=== PATIENT | female | born 1960 | race Caucasian/White ===

== ENCOUNTER 2018-11-19 16:41 | Emergency (ER) | payer OTHER ==
[~2018-11-19] VITALS: Ht 167.6 cm; Wt 74.8 kg
== END 2018-11-19 20:09 | disposition left against medical advice (07) ==
LOC: ER 16:41
DX: Z53.21 Procedure and treatment not carried out due to patient leaving prior to being seen by health care provider (principal)
CPT/HCPCS: 74176; 99284-25

== ENCOUNTER → 2018-11-19 | Outpatient (CLI) | payer OTHER ==
[~2018-11-19] MED LIST: ALBU90OI6 INH; AMIT75 PO; ATEN50 PO; ATOR10; AZIT250 PO; BENZ100A PO; CYCL10 PO; DIVA250EC; HYDACE5 PO; IBUP600 PO; IBUP800 PO; LISI5 PO; METCAR500 PO; NAPR500 PO; NAPR500EC PO; OXYACE5T PO; PENVK500 PO; PREG200; PREG200 PO; PREG25 PO; PREMARIN; RXCYCL10 PO; RXHYDACE PO; SERT100 PO; TRAM50 PO; VARE1 PO; VENL25 PO; VENL75; VENL75 PO
[2018-11-19 16:48] LABS: BASOPHILS ABSOLUTE AUTO 0.05 K/mm3 (0.00-0.23); BASOPHILS PERCENT AUTO 1 % (0-2); EOSINOPHILS PERCENT AUTO 2 % (0-6); Hematocrit 42.5 % (33.0-51.0); Hemoglobin 14.3 g/dL (11.5-16.0); IMMATURE GRAN ABSOLUTE AUTO 0.01 K/mm3 (0.00-0.10); IMMATURE GRAN PERCENT AUTO 0 % (0-1); LYMPHOCYTES ABSOLUTE AUTO 2.35 K/mm3 (0.84-5.20); LYMPHOCYTES PERCENT AUTO 37 % (21-46); MONOCYTES ABSOLUTE AUTO 0.28 K/mm3 (0.16-1.47); MONOCYTES PERCENT AUTO 4 % (4-13); Mean Corpuscular HGB 31.5 pg (26.0-34.0); Mean Corpuscular HGB Conc 33.6 g/dL (31.5-36.5); Mean Corpuscular Volume 94 fL (80-100); Mean Platelet Volume 10.5 fL (9.1-12.4); NEUTROPHILS ABSOLUTE AUTO 3.56 K/mm3 (1.96-9.15); NEUTROPHILS PERCENT AUTO 56 % (41-73); Platelet Count 248 K/mm3 (150-400); RDW Coefficient Variation 12.2 % (11.7-14.2); RDW Standard Deviation 42.1 fL (35.1-46.3); Red Blood Cell Count 4.54 M/mm3 (3.80-5.20); White Blood Cell Count 6.35 K/mm3 (4.00-11.30)
[2018-11-19 17:17] LABS: Alanine Aminotransfer (ALT/SGP 29 U/L (12-78); Albumin/Globulin Ratio 1.2 (0.8-1.8); Alk Phos 91 U/L (50-136); Amylase, Blood 98 U/L (25-115); Anion Gap 5 mmol/L (6-16); Aspartate Aminotrans (AST/SGOT 22 U/L (12-37); Bilirubin, Total 0.4 mg/dL (0.1-1.0); Blood Urea Nitrogen 14 mg/dL (8-24); Bun/Creatinine Ratio 14.1 (12.0-20.0); CO2, Blood 24 mmol/L (21-32); Calcium, Blood 9.4 mg/dL (8.5-10.1); Chloride, Blood 108 mmol/L (98-108); Creatinine, Blood 0.99 mg/dL (0.40-1.00); Globulin, Blood 3.4 g/dL (2.2-4.0); Glomerular Filtration Rate >60 (60-); Glucose, Blood 88 mg/dL (70-99); Potassium, Blood 3.8 mmol/L (3.5-5.5); Sodium, Blood 137 mmol/L (136-145); Total Protein, Blood 7.4 g/dL (6.4-8.2)
== END ==
LOC: LAB 16:32 → LAB SHORT 16:32
PROVIDERS: Family Medicine
DX: R10.9 Unspecified abdominal pain (principal); R11.0 Nausea
CPT/HCPCS: 80053; 82150; 83690; 85025

== ENCOUNTER 2022-09-25 10:05 | Emergency (ER) | payer OTHER ==
[~2022-09-25] VITALS: Ht 167.6 cm; Wt 72.6 kg
[2022-09-25 11:08] LABS: BASOPHILS ABSOLUTE AUTO 0.05 K/mm3 (0.00-0.23); BASOPHILS PERCENT AUTO 1 % (0-2); EOSINOPHILS ABSOLUTE AUTO 0.19 K/mm3 (0.00-0.68); EOSINOPHILS PERCENT AUTO 3 % (0-6); Hematocrit 45.8 % (33.0-51.0); Hemoglobin 15.7 g/dL (11.5-16.0); IMMATURE GRAN ABSOLUTE AUTO 0.02 K/mm3 (0.00-0.10); IMMATURE GRAN PERCENT AUTO 0 % (0-1); LYMPHOCYTES ABSOLUTE AUTO 2.59 K/mm3 (0.84-5.20); LYMPHOCYTES PERCENT AUTO 38 % (21-46); MONOCYTES ABSOLUTE AUTO 0.34 K/mm3 (0.16-1.47); MONOCYTES PERCENT AUTO 5 % (4-13); Mean Corpuscular HGB 32.2 pg (26.0-34.0); Mean Corpuscular HGB Conc 34.3 g/dL (31.5-36.5); Mean Corpuscular Volume 94 fL (80-100); Mean Platelet Volume 9.8 fL (9.1-12.4); NEUTROPHILS ABSOLUTE AUTO 3.56 K/mm3 (1.96-9.15); NEUTROPHILS PERCENT AUTO 53 % (41-73); Platelet Count 250 K/mm3 (150-400); RDW Coefficient Variation 11.9 % (11.7-14.2); RDW Standard Deviation 41.1 fL (35.1-46.3); Red Blood Cell Count 4.88 M/mm3 (3.80-5.20); White Blood Cell Count 6.75 K/mm3 (4.00-11.30)
[2022-09-25 11:52] LABS: Albumin/Globulin Ratio 1.1 (0.8-1.8); Bilirubin, Total 0.5 mg/dL (0.1-1.0); Bun/Creatinine Ratio 16.2 (12.0-20.0); Calcium, Blood 9.5 mg/dL (8.5-10.1); Creatinine, Blood 1.05 mg/dL (0.40-1.00); Globulin, Blood 3.8 g/dL (2.2-4.0); Magnesium, Blood 2.3 mg/dL (1.6-2.4); Potassium, Blood 4.1 mmol/L (3.5-5.5); Total Protein, Blood 7.8 g/dL (6.4-8.2)
[2022-09-25] MEDS ORDERED: TOPI50 (14:54)
[2022-09-25] MEDS ORDERED: PROP10 PO (14:55)
[2022-09-25] MEDS ORDERED: NURTEC ODT75 MG PO (14:56)
== END 2022-09-25 15:28 | disposition home or self-care (01) ==
LOC: ER 10:05
PROVIDERS: Physician Assistant
DX: R51.9 Headache, unspecified (principal); I10 Essential (primary) hypertension; Z87.891 Personal history of nicotine dependence; Z79.899 Other long term (current) drug therapy
CPT/HCPCS: 36415; 70450; 80053; 83735; 85025; 93005; 93010; A9270; J1200; J1885; J2765

== ENCOUNTER 2023-04-25 14:08 | Inpatient (IN) | payer OTHER ==
[~2023-04-25] VITALS: Ht 167.6 cm; Wt 82.3 kg
[~2023-04-25 14:08] MED LIST changes: -ALBU90OI INH; -ARNUITY ELLIPT50 MCG IH; -ASPI81CH PO; -BRILINTA90 M1 PO; -CLON.5 PO; -INDOMETHACIN PO; -Inderal40 MG PO; -LISI20 PO; -Lipitor80 MG PO; -MECL25 PO; -NITR.4SL SL; -OMEP20ER PO; -PROM25 PO; -SUMA25 PO; -TOPI25 PO
[2023-04-25] MEDS ORDERED: CLON.5 PO ×2 (15:47)
[2023-04-25] MEDS ORDERED: ASPI81CH PO ×2 (15:47)
[2023-04-25] MEDS ORDERED: ALBU90OI INH ×2 (15:47)
[2023-04-25] MEDS ORDERED: ARNUITY ELLIPT50 MCG IH (15:48)
[2023-04-25] MEDS ORDERED: LISI20 PO ×2 (15:48)
[2023-04-25] MEDS ORDERED: INDOMETHACIN PO (15:48)
[2023-04-25] MEDS ORDERED: NURTEC ODT75 MG PO ×2 (15:49)
[2023-04-25] MEDS ORDERED: MECL25 PO (15:49)
[2023-04-25] MEDS ORDERED: OMEP20ER PO ×2 (15:49)
[2023-04-25] MEDS ORDERED: SUMA25 PO ×2 (15:50)
[2023-04-25] MEDS ORDERED: Inderal40 MG PO ×2 (15:50)
[2023-04-25] MEDS ORDERED: PROM25 PO ×3 (15:50)
[2023-04-25] MEDS ORDERED: TOPI25 PO ×2 (15:51)
[2023-04-25 16:20] LABS: CHOL/HDL RATIO 2.5; Cholesterol 266 mg/dL (50-200); HDL Cholesterol 108 mg/dL (>39); LDL/HDL RATIO 1.2; Low Density Lipoprotein Chol 132 mg/dL (0-110); Triglycerides 128 mg/dL (30-160); Very Low Density Lipoprot Chol 25 mg/dL (6-32)
[2023-04-25 17:00] VITALS: BP 161/92
[2023-04-25 17:34] VITALS: BP 156/97
[2023-04-25 17:40] LABS: Anti-Xa UFH, PHA Monitoring <0.10 IU/mL; International Normalized Ratio 0.97; Prothrombin Time Results 10.2 Sec (9.7-11.5)
--- NOTE | 2023-04-25 18:11 | NUR ---
ADMIT TO U 05 AT 1701 PATIENT ABLE TO STAND AND TRANSFER TO BED. ALERT AND ORIENTED X4. DENIES NUMBNESS/TINGLING. COMPLAINS OF 4/10 CHEST PRESSURE. DENIES RADIATING PAIN. STATES SHE FEELS A "AIR BUBBLE TRAPPED". DENIES SHARP SHOOTING PAIN. STATES SHE HAS BEEN HAVING THIS PAIN INTERMIT FOR THE LAST 4 DAYS WITH INCREASING PAIN EACH EPISODE. PATIENT STATES EPISODES HAPPEN AT RANDOM TIMES SUCH DRIVING AND IN THE MIDDLE OF THE NIGHT WAKING HER. DR. MEJIA TO BEDSIDE FOR CARDIOLOGY CONSULT. PLAN FOR ECHO IN AM. PATIENT REMAINS NPO. HEPARIN GTT INFUSING PER EMAR. BP ELEVATED, PRN HYDRALAZINE GIVEN PER EMAR. ON ROOM AIR SATING ABOVE 95%. PATIENT STATES SOB COMES AND GOES WITH INTERMIT CHEST PAIN. EVEN AND UNLABORED BREATHS. DENIES ABDOMINAL PAIN/NAUSEA. VOIDING WNL. LAST BM THIS AM. CALL LIGHT IN REACH. MED REC COMPLETED. PATIENT EDUCATED ON HEPARIN GTT AND FALL RISK/SAFETY.
[2023-04-25 19:00] VITALS: BP 168/144
[2023-04-25 19:55] VITALS: BP 191/84
[2023-04-25 20:00] VITALS: BP 173/107
[2023-04-25 21:00] VITALS: BP 148/79
[2023-04-25 21:25] LABS: U Amphetamine Screen Not Detected; U Barbituate Screen Not Detected; U Benzodiazapine Screen Not Detected; U Buprenorphine Screen Not Detected; U Cannabinoids Screen DETECTED; U Cocaine Screen Not Detected; U Methadone Screen Not Detected; U Methamphetamine Screen Not Detected; U Opiates Screen Not Detected; U Oxycodone Screen Not Detected; U Phencyclidine Screen Not Detected; U Propoxyphene Screen Not Detected
[2023-04-26] VITALS (16 sets, daily range): BP systolic 99–142; BP diastolic 62–95
--- NOTE | 2023-04-26 04:56 | NUR ---
SHIFT SUMMARY PATIENT IS ALERT AND ORIENTED X4. 02 SATS >93% ON RA, DENIES SOB. HR SB-SR 56-60s. BP STABLE THROUGH THE NIGHT. DENIES CP/PRESSURE THIS SHIFT. HEPARIN DRIP REMAINS INFUSING. MEDICATED FOR ANXIETY BEFORE BED, PATIENT SLEPT MOST THE NIGHT. UP TO TOILET SBA. FAMILY AT BEDSIDE. CALL LIGHT IN REACH.
[2023-04-26 05:30] LABS: BASOPHILS ABSOLUTE AUTO 0.04 K/mm3 (0.00-0.23); BASOPHILS PERCENT AUTO 1 % (0-2); EOSINOPHILS ABSOLUTE AUTO 0.22 K/mm3 (0.00-0.68); EOSINOPHILS PERCENT AUTO 4 % (0-6); Hematocrit 41.4 % (33.0-51.0); Hemoglobin 14.2 g/dL (11.5-16.0); IMMATURE GRAN ABSOLUTE AUTO 0.01 K/mm3 (0.00-0.10); IMMATURE GRAN PERCENT AUTO 0 % (0-1); LYMPHOCYTES ABSOLUTE AUTO 2.46 K/mm3 (0.84-5.20); LYMPHOCYTES PERCENT AUTO 47 % (21-46); MONOCYTES ABSOLUTE AUTO 0.28 K/mm3 (0.16-1.47); MONOCYTES PERCENT AUTO 5 % (4-13); Mean Corpuscular HGB 30.9 pg (26.0-34.0); Mean Corpuscular HGB Conc 34.3 g/dL (31.5-36.5); Mean Corpuscular Volume 90 fL (80-100); Mean Platelet Volume 10.5 fL (9.1-12.4); NEUTROPHILS ABSOLUTE AUTO 2.28 K/mm3 (1.96-9.15); NEUTROPHILS PERCENT AUTO 43 % (41-73); Platelet Count 203 K/mm3 (150-400); RDW Coefficient Variation 12.3 % (11.7-14.2); RDW Standard Deviation 41.1 fL (35.1-46.3); Red Blood Cell Count 4.59 M/mm3 (3.80-5.20); White Blood Cell Count 5.29 K/mm3 (4.00-11.30)
[2023-04-26 05:52] LABS: Albumin, Blood 3.4 g/dL (3.4-5.0); Albumin/Globulin Ratio 1.1 (0.8-1.8); Bilirubin, Total 0.5 mg/dL (0.1-1.0); Bun/Creatinine Ratio 17.1 (12.0-20.0); Calcium, Blood 9.2 mg/dL (8.5-10.1); Creatinine, Blood 0.88 mg/dL (0.40-1.00); Potassium, Blood 3.3 mmol/L (3.5-5.5); Total Protein, Blood 6.4 g/dL (6.4-8.2)
--- NOTE | 2023-04-26 18:08 | NUR ---
SHIFT SUMMARY: TELEMETRY CHANGES NOTED OVERNIGHT, PT IS ASYMPTOMATIC THIS AM. INVERTED T WAVES AND PROLONGED QT NOTED, EKG DONE THIS AM. DR MEJIA TO BEDSIDE THIS AM, DISCUSSED ANGIOGRAM WITH PT. PT IS VERY ANXIOUS ABOUT PROCEDURE, BUT AGREES. PT TO HARDWARE ENGINEERING MANAGER AND RETURNED TO ROOM [id number]. TR BAND TO R RADIAL SITE, RECOVERED WNL, NO COMPLICATIONS NOTED. PT REPORTS HEADACHE AND ACHING IN HER CHEST, DR MEJIA AT BEDSIDE THIS AFTERNOON TO EVALUATE, NEW ORDERS RECEIVED. SEE DOCUMENTED VS, BLOOD PRESSURES HAVE IMPROVED. PT EDUCATED ON RADIAL SITE PRECAUTIONS AND VERBALIZES UNDERSTANDING. PT IS ABLE TO USE CALL LIGHT FOR NEEDS. WILL CONTINUE TO MONITOR AND GIVE REPORT TO NOC SHIFT RN.
[2023-04-27] VITALS: BP 110/69
[2023-04-27 05:02] VITALS: BP 118/85
[2023-04-27 05:07] LABS: Albumin, Blood 3.1 g/dL (3.4-5.0); Albumin/Globulin Ratio 1.1 (0.8-1.8); Bilirubin, Total 0.3 mg/dL (0.1-1.0); Bun/Creatinine Ratio 21.7 (12.0-20.0); Calcium, Blood 8.8 mg/dL (8.5-10.1); Creatinine, Blood 0.97 mg/dL (0.40-1.00); Globulin, Blood 2.9 g/dL (2.2-4.0)
--- NOTE | 2023-04-27 06:07 | NUR ---
SHIFT SUMMARY ASSUMED CARE OF PT AT 1900. PT IS A/OX4. HEART SOUNDS REGULAR. PT WAS INDER WHEN SLEEPING. LUNG SOUNDS CLEAR. R RADIAL SITE HAS SOME BRUISING AND PT STAES IS SORE. PT C/O DULL CP, BUT STATED IT WAS BETTER THIS AM. PT SLEPT T/O THE NOC. PT DAUGHTER IN ROOM WITH PT.
[2023-04-27 08:40] VITALS: BP 138/97
[2023-04-27] MEDS ORDERED: Lipitor80 MG PO ×2 (12:26)
[2023-04-27] MEDS ORDERED: NITR.4SL SL ×2 (12:26)
[2023-04-27] MEDS ORDERED: BRILINTA90 M1 PO ×2 (12:27)
--- NOTE | 2023-04-27 12:44 | NUR ---
ASSUMED CARE OF PT AT 0700 THIS AM. PT W NO COMPLAINTS. SEE DOCUMENTED VS AND ASSESSMENT. PT DISCHARGED HOME WITH ALL BELONGINGS AT 1240. RXs SENT TO [facility] PER PT REQUEST. ALL DISCHARGE TEACHING REVIEWED, INCLUDING FOLLOW UP APPOINTMENTS, MEDICATION LIST, NEW MEDICATIONS AND R RADIAL SITE CARE. PT AND DTR AT BEDSIDE VERBALIZED UNDERSTANDING AND HAVE NO QUESTIONS OR CONCERNS AT THIS TIME. NO FURTHER DISCHARGE NEEDS IDENTIFIED.
== END 2023-04-27 12:46 | disposition home or self-care (01) | DRG 247 ==
LOC: ER 14:08 → PCU 16:07
PROVIDERS: Family Medicine; Internal Medicine Cardiovascular Disease; ADMIT Internal Medicine
PROC: 027034Z Dilation of Coronary Artery, One Artery with Drug-eluting Intraluminal Device, Percutaneous Approach (ICD-10-PCS; principal; 2023-04-26)
PROC: 4A023N7 Measurement of Cardiac Sampling and Pressure, Left Heart, Percutaneous Approach (ICD-10-PCS; 2023-04-26)
PROC: B2111ZZ Fluoroscopy of Multiple Coronary Arteries using Low Osmolar Contrast (ICD-10-PCS; 2023-04-26)
PROC: B241ZZZ Ultrasonography of Multiple Coronary Arteries (ICD-10-PCS; 2023-04-26)
DX: I21.4 Non-ST elevation (NSTEMI) myocardial infarction (principal); E87.1 Hypo-osmolality and hyponatremia; I16.1 Hypertensive emergency; F41.9 Anxiety disorder, unspecified; G43.909 Migraine, unspecified, not intractable, without status migrainosus; F31.9 Bipolar disorder, unspecified; E78.00 Pure hypercholesterolemia, unspecified; I11.9 Hypertensive heart disease without heart failure; K21.9 Gastro-esophageal reflux disease without esophagitis; F12.90 Cannabis use, unspecified, uncomplicated; E04.2 Nontoxic multinodular goiter; I48.0 Paroxysmal atrial fibrillation; E87.6 Hypokalemia; R79.89 Other specified abnormal findings of blood chemistry; Z98.1 Arthrodesis status; Z90.710 Acquired absence of both cervix and uterus; Z87.891 Personal history of nicotine dependence; Z79.51 Long term (current) use of inhaled steroids; Z79.82 Long term (current) use of aspirin; Z79.811 Long term (current) use of aromatase inhibitors; Z98.890 Other specified postprocedural states; Z82.49 Family history of ischemic heart disease and other diseases of the circulatory system; Z88.5 Allergy status to narcotic agent; Z88.8 Allergy status to other drugs, medicaments and biological substances; Z79.899 Other long term (current) drug therapy
CPT/HCPCS: 36415; 71045; 71260; 76937; 80053; 80061; 83036; 83735; 84443; 84484; 85025; 85347; 85520; 85610; 85730; 93005; 93010; 93306; 93454; 94760; 99152; 99153; 99285-25; A9270; C1725; C1769; C1874; C1887; C1894; C9600; J0360; J1644; J2250; J3010; J7030; J7050; Q9967

== ENCOUNTER → 2023-04-25 | Outpatient (CLI) | payer OTHER ==
[~2023-04-25] MED LIST changes: +ALBU90OI INH; +ARNUITY ELLIPT50 MCG IH; +ASPI81CH PO; +BRILINTA90 M1 PO; +CLON.5 PO; +INDOMETHACIN PO; +Inderal40 MG PO; +LISI20 PO; +Lipitor80 MG PO; +MECL25 PO; +NITR.4SL SL; +NURTEC ODT75 MG PO; +OMEP20ER PO; +PROM25 PO; +PROP10 PO; +SUMA25 PO; +TOPI25 PO; +TOPI50
[2023-04-25 13:33] LABS: BASOPHILS ABSOLUTE AUTO 0.05 K/mm3 (0.00-0.23); BASOPHILS PERCENT AUTO 1 % (0-2); EOSINOPHILS ABSOLUTE AUTO 0.22 K/mm3 (0.00-0.68); EOSINOPHILS PERCENT AUTO 4 % (0-6); Hematocrit 42.7 % (33.0-51.0); Hemoglobin 14.8 g/dL (11.5-16.0); IMMATURE GRAN ABSOLUTE AUTO 0.02 K/mm3 (0.00-0.10); IMMATURE GRAN PERCENT AUTO 0 % (0-1); LYMPHOCYTES PERCENT AUTO 35 % (21-46); MONOCYTES ABSOLUTE AUTO 0.43 K/mm3 (0.16-1.47); MONOCYTES PERCENT AUTO 7 % (4-13); Mean Corpuscular HGB 31.4 pg (26.0-34.0); Mean Corpuscular HGB Conc 34.7 g/dL (31.5-36.5); Mean Corpuscular Volume 91 fL (80-100); Mean Platelet Volume 9.9 fL (9.1-12.4); NEUTROPHILS ABSOLUTE AUTO 3.23 K/mm3 (1.96-9.15); NEUTROPHILS PERCENT AUTO 54 % (41-73); Platelet Count 232 K/mm3 (150-400); RDW Coefficient Variation 12.3 % (11.7-14.2); RDW Standard Deviation 40.9 fL (35.1-46.3); Red Blood Cell Count 4.72 M/mm3 (3.80-5.20); White Blood Cell Count 6.05 K/mm3 (4.00-11.30)
[2023-04-25 13:43] LABS: Albumin, Blood 3.9 g/dL (3.4-5.0); Albumin/Globulin Ratio 1.1 (0.8-1.8); Bilirubin, Total 0.4 mg/dL (0.1-1.0); Bun/Creatinine Ratio 24.1 (12.0-20.0); Calcium, Blood 9.6 mg/dL (8.5-10.1); Creatinine, Blood 0.83 mg/dL (0.40-1.00); Globulin, Blood 3.5 g/dL (2.2-4.0); Potassium, Blood 4.1 mmol/L (3.5-5.5); Total Protein, Blood 7.4 g/dL (6.4-8.2)
== END | disposition home or self-care (01) ==
LOC: LAB 13:24 → LAB SHORT 13:24
PROVIDERS: Chiropractor
DX: R07.89 Other chest pain (principal)
CPT/HCPCS: 80053; 83880; 84484; 85025; 85379

== ENCOUNTER → 2024-08-24 | Outpatient (CLI) | payer OTHER ==
[~2024-08-24] MED LIST changes: +ALBU90OI INH; +ARNUITY ELLIPT50 MCG IH; +ASPI81CH PO; +BRILINTA90 M1 PO; +CLON.5 PO; +INDOMETHACIN PO; +Inderal40 MG PO; +LISI20 PO; +Lipitor80 MG PO; +MECL25 PO; +NITR.4SL SL; +OMEP20ER PO; +PROM25 PO; +SUMA25 PO; +TOPI25 PO
[2024-08-24 17:47] LABS: Source, Urine Clean Catch
[2024-08-24 17:58] LABS: Appearance, Urine Clear (Clear); Bilirubin, Urine Neg (Neg); Blood, Urine Neg (Neg); Glucose Qualitative, Urine Neg (Neg); Ketones, Urine Neg (Neg); Leukocyte Esterase, Urine Neg (Neg); Nitrite, Urine Neg (Neg); Protein, Urine Neg (Neg); Specific Gravity, Urine 1.005 (1.003-1.022); Urobilinogen, Urine NORM (Normal)
[2024-08-24 18:37] LABS: Color, Urine Pale Yellow (P-Yellow)
== END | disposition home or self-care (01) ==
LOC: LAB 17:46 → LAB SHORT 17:46
PROVIDERS: Nurse Practitioner Family
DX: R35.0 Frequency of micturition (principal)
CPT/HCPCS: 81003

== ENCOUNTER → 2025-03-02 | Outpatient (CLI) | payer OTHER | LOC: LAB 18:48 → LAB SHORT 18:48 | DX: N39.0 Urinary tract infection, site not specified (principal) | CPT/HCPCS: 87077; 87086; 87186 ==